=== PATIENT | female | born 1950 | race Caucasian/White ===

== ENCOUNTER 2018-04-29 16:15 | Outpatient (CLI) | payer MEDICARE ==
--- NOTE | 2018-04-29 16:56 | RAD ---
LEFT HAND THREE VIEWS: History: Pain in left hand with swelling. Concern for rheumatoid arthritis. FINDINGS: Heterogeneous bony demineralization. Arthrosis and degenerative changes are noted of the hand and wri st without significant bony erosion or destructive changes to suggest evidence for acute inflammatory arthritis. IMPRESSION: Degenerative and osteoarthrosis changes. No fracture or dislocation. POS: OFF
--- NOTE | 2018-04-29 16:58 | RAD ---
LEFT WRIST THREE VIEWS: History: Left wrist pain. FINDINGS: Heterogeneous bony demineralization. Degenerative changes including the trapezium and first metacarpa l joint. No evidence for significant acute inflammatory arthritis. IMPRESSION: Osteoarthritis and degenerative change without acute fracture or dislocation. POS: OFF
--- NOTE | 2018-04-29 16:59 | RAD ---
RIGHT HAND THREE VIEWS: History: Right hand pain. FINDINGS: Arthrosis and degenerative changes. No evidence for acute inflammatory arthritis. IMPRESSION: Arthrosis and degenerative change without fracture or dislocation. POS: OFF
--- NOTE | 2018-04-29 17:00 | RAD ---
RIGHT WRIST THREE VIEWS: History: Right wrist pain. FINDINGS: Degenerative changes including the triscaphe and trapezium first metacarpal joint, evidence for osteo arthrosis. No evidence for acute inflammatory arthritis. IMPRESSION: Degenerative and osteoarthrosis changes. No other acute process. POS: OFF
== END 2018-04-29 16:16 | disposition home or self-care (01) ==
LOC: BICRAD 16:15
PROVIDERS: ATTEND Internal Medicine Rheumatology
DX: M79.643 Pain in unspecified hand (principal); M25.519 Pain in unspecified shoulder; M19.042 Primary osteoarthritis, left hand; M19.041 Primary osteoarthritis, right hand; M19.032 Primary osteoarthritis, left wrist; M19.031 Primary osteoarthritis, right wrist